=== PATIENT | male | born 1990 | race Caucasian/White ===

== ENCOUNTER 2021-04-01 10:47 | Inpatient (IN) | payer SELFPAY ==
[2021-04-01] VITALS (52 sets, daily range): BP systolic 147–234; BP diastolic 83–171; PULSE 63–91; RESP 12–30; TEMP 36.1–37.1; O2SAT 93–99; BMI 82.1
--- NOTE | ~2021-04-01 | US_ITS ---
EXAMINATION: US retroperitoneal duplex ltd DATE: 04/02/2021 10:46 INDICATION: Hypertensive emergency TECHNIQUE: Multiple grayscale, color Doppler, and pulsed Doppler images of the kidneys and renal nellie oral were obtained. COMPARISON: None. FINDINGS: The aorta peak systolic velocity is 115 cm/s. The right renal artery peak systolic velocity is 138 cm /s in the proximal segment, 122 cm/s in the mid segment, and 108 cm/s in the distal segment. The left renal artery peak systolic velocity is 117 cm/s in the proximal segment, 119 cm/s in the mid segment , and 130 cm/s in the distal segment. No hydronephrosis in either kidney. IMPRESSION: 1. No Doppler evidence of renal artery stenosis. Reviewed, dictated and finalized at location A. R SUPERVISOR
--- NOTE | ~2021-04-01 | CT_ITS ---
EXAMINATION: CTA chest PE protocol EXAM DATE: 04/01/2021 15:23 INDICATION: Shortness of breath, elevated D-dimer TECHNIQUE: Spiral CTA of the chest (pulmonary arteries) was performed with 100 cc Omnipaque 350 intr avenous contrast injection. Images were acquired during the pulmonary arterial phase. Coronal maxi mum intensity projection 3D-reconstructions were created by the technologist on dedicated workstation . Axial, coronal and sagittal reformatted images were reviewed. The dose-length product (DLP) for t his examination was 1808.74 mGy-cm. The exposure was tailored according to patient size (auto mA ex posure control), and iterative reconstruction (ASIR) was used as additional dose reduction technique. There is no prior study for comparison. FINDINGS: Pulmonary arteries are well opacified and without intraluminal filling defects. No thora cic aortic dissection. There is cardiomegaly. Moderate amount of bilateral airspace disease, focal sc attered groundglass opacities suspicious for acute COVID pneumonia. There is also generalized groundg lass density which could be superimposed edema. There are small bilateral pleural effusions. Small pe ricardial effusion. Mild reactive mediastinal lymphadenopathy. No pneumothorax. IMPRESSION: Findings consistent with CHF exacerbation and possibly acute COVID pneumonia. Reviewed, dictated and finalized at location B. EXAMINER
--- NOTE | ~2021-04-01 | XR_ITS ---
EXAMINATION: XR chest 2V EXAM DATE: 04/01/2021 11:52 INDICATION: chest pain, SOB HTN . TECHNIQUE: Frontal and lateral projections of the chest obtained and reviewed. There is no prior mayito dy for comparison. FINDINGS: There is mild cardiomegaly. There is prominent bilateral perihilar reticulation which coul d be edema or atypical pneumonia. No pneumothorax. Trace fluid in the right minor and major fissures. No confluent consolidation. There are no osseous abnormalities identified. IMPRESSION: Mild cardiomegaly and bilateral perihilar indistinct reticulation, edema or atypical pneu monia. Reviewed, dictated and finalized at location B. WEEDER IMPRESSION: Mild cardiomegaly and bilateral perihilar indistinct reticulation, edema or atypical pneumonia.
--- NOTE | 2021-04-01 11:00 | ECG_ITS ---
Measurements Intervals [place] Rate: 88 P: 29 SC: 157 QRS: 57 QRSD: 105 T: 169 QT: 378 QTc: 458 Interpretive Statements SINUS RHYTHM POSSIBLE LEFT ATRIAL ENLARGEMENT LEFT VENTRICULAR HYPERTROPHY AND ST-T CHANGE BORDERLINE ECG Electronically Signed On 04-01-2021 11:44:05 SUCTION PLATE ROLLER HAND by Zeb Washington D.O.
[2021-04-01 11:15] LABS: Basophils Absolute Auto 0.1 K/mm3 (0.0-0.1); Basophils Percent Auto 1.2 % (0.2-1.2); Eosinophils Absolute Auto 0.2 K/mm3 (0-0.3); Eosinophils Percent Auto 2.1 % (0-4.4); Immature Granulocyte Absolute 0.03 K/mm3 (0.00-0.031); Immature Granulocyte Percent A 0.4 % (0-0.5); Lymphocytes Absolute Auto 1.71 K/mm3 (0.9-3.2); Mean Corpuscular HGB Conc 34.1 g/dl (32-36); Mean Corpuscular Hemoglobin 27.5 pg (26-34); Mean Corpuscular Volume 80.6 fl (80-100); Mean Platelet Volume 12.1 fl (7.4-10.4); Monocytes Absolute Auto 0.7 K/mm3 (0.1-0.6); Monocytes Percent Auto 8.1 % (2.6-8.5); Neutrophils Absolute Auto 5.8 K/mm3 (1.3-6.7); Neutrophils Percent Auto 68.2 % (45.5-73.1); Platelet Count Result 244 k/mm3 (150-375); Red Blood Count 5.46 M/mm3 (4.6-6.20); Red Cell Distribution Width 13.7 % (11.5-14.5); White Blood Count 8.6 K/mm3 (4.5-10.0)
[2021-04-01 11:25] LABS: Prothrombin Time 12.8 Seconds (11.1-14.7)
[2021-04-01 11:26] LABS: Partial Thromboplastin Time 26.1 SECONDS (22.3-36.8)
[2021-04-01 11:28] LABS: Alanine Aminotransferase 30 U/L (4-50); Albumin Level 4.8 g/dL (3.5-5.1); Alkaline Phosphatase 43 U/L (38-126); Anion Gap 10 mmol/L (8-16); Aspartate Amino Transferase 50 U/L (17-59); Bilirubin,Total 1.4 mg/dL (0.2-1.3); Blood Urea Nitrogen 21 mg/dL (9-20); Calcium 9.4 mg/dL (8.4-10.2); Carbon Dioxide 22 mmol/L (22-30); Chloride 105 mmol/L (98-107); Estimated CRCL calculation 109 ml/min; Estimated Glomerular Filt Rate > 60; Glucose 108 mg/dL (65-110); Lipase 40 U/L (23-300); Potassium 3.9 mmol/L (3.4-5.0); Sodium 137 mmol/L (137-145)
[2021-04-01 11:38] LABS: Troponin I 0.127 ng/mL (0.000-0.034)
--- NOTE | 2021-04-01 11:54 | ED.CHESTPAIN ---
HPI - Chest Pain General Chief Complaint: Recheck/Abnormal Lab/Rx Stated Complaint: high blood pressure Time Seen by Provider: 04/01/21 11:26 Source: patient Mode of arrival: ambulatory Limitations: no limitations History of Present Illness HPI narrative: Patient is a 30-year-old male sent here by his primary care physician, first visit with him, due to elevated blood pressure accompanied by chest discomfort. Patient states that his chest pain started approximately 2 weeks ago intermittent, midsternal, pressure, nonradiating, accompanied by shortness of breath. Patient states that he was diagnosed with elevated blood pressure when he was in his early 20s, was on medication but lost insurance years ago and has not had any follow-up or medication since. Patient denies any headache, dizziness, speech or visual disturbance, focal weakness or numbness, abdominal pain, nausea, vomiting, fever or chills. Related Data Home Medications Medication Instructions Recorded Confirmed No Home Medications 04/01/21 04/01/21 Allergies Allergy/AdvReac Type Severity Reaction Status Date / Time No Known Allergies Allergy Verified 04/01/21 11:28 Review of Systems Review of Systems: All systems reviewed & are unremarkable except as noted in HPI and below Constitutional: Constitutional: Denies body ache(s), Denies chills, Denies excessive sweating, Denies fatigue, Denies fever(s), Denies headache(s), Denies lethargy, Denies malaise, Denies weakness and Denies weight loss Eyes: Eyes: Denies blurry vision, Denies change in vision and Denies loss of vision ENT: Denies dizziness, Denies ear discharge, Denies headache(s), Denies lip swelling, Denies epistaxis, Denies nasal congestion, Denies neck pain, Denies throat swelling and Denies tongue swelling Cardiovascular: Cardiovascular: Denies diaphoresis, Denies rapid heart rate, Denies edema, Denies irregular heart rhythm, Denies lightheadedness and Denies palpitations Respiratory: Respiratory: Denies chest congestion, Denies cough and Denies hemoptysis Gastrointestinal: Gastrointestinal: Denies abdominal pain, Denies melena, Denies hematochezia, Denies diarrhea, Denies nausea, Denies vomiting and Denies hematemesis Musculoskeletal: Musculoskeletal: Denies abnormal gait, Denies deformity, Denies joint swelling, Denies limited range of motion, Denies neck pain and Denies numbness Neurologic: Denies Abnormal speech present, Denies abnormal gait, Denies confusion, Denies dizziness, Denies headache(s), Denies focal weakness, Denies loss of vision, Denies numbness, Denies Other visual disturbances, Denies Sensory deficit (Neuro) and Denies weakness Psychiatric: Psychiatric: Denies confusion, Denies depression, Denies auditory hallucinations, Denies homicidal ideation and Denies suicidal ideation Endocrine: Endocrine: Denies cold intolerance, Denies excessive sweating, Denies fatigue, Denies heat intolerance and Denies palpitations Hematologic/Lymphatic: Hematologic/Lymphatic: Denies easy bleeding and Denies easy bruising Allergic/Immunologic: Allergic/Immunologic: Denies lip swelling, Denies throat swelling and Denies tongue swelling PMFSH Comments Past medical history: Hypertension Family history: Hypertension Social history: Non-smoker no EtOH or drug use Exam Const: General: cooperative, healthy appearing, comfortable, no acute distress, well developed, alert and awake; No confusion Orientation/consciousness: oriented to person, oriented to place, oriented to time, patient oriented x3 and No confusion Limitations: no limitations HENMT: Head: normal to inspection, normocephalic and atraumatic Ears: hearing grossly normal bilaterally, TM normal on the right and TM normal on the left General nose exam: Normal external nose present, Normal nares present and No nasal discharge present Face and sinus: normal facial exam Mouth: Yes Normal oral and palatal mucosa present, Yes lip normal, Yes tongue normal
[2021-04-01 12:19] LABS: D Dimer 3.78 ug/mL (<0.48)
[2021-04-01] MEDS: ASPIRIN 81 MG CHEWABLE TABLET 324 MG PO (12:23)
[2021-04-01] MEDS: LABETALOL HCL INJ 100 MG/20 ML VIAL 20 MG IV PUSH ×2 (12:38→15:43)
[2021-04-01 14:43] LABS: Troponin I 0.115 ng/mL (0.000-0.034)
[2021-04-01] MEDS: NITROGLYCERIN/D5W 200 MCG/ML 50 MG/250 ML BTL IV CONT ×2 (16:33→18:00)
--- NOTE | 2021-04-01 17:00 | PM.IMHP ---
H&P: HPI History of Present Illness Date/Time: 04/01/21 17:00 Chief Complaint: High blood pressure and chest pain. Narrative: This is a pleasant 30-year-old male with untreated hypertension who presented to the emergency department today from his doctor's office for evaluation of high blood pressure and chest pain. He reports intermittent, self-limiting, non-radiating midsternal chest pressure that has been going on for approximately 2 weeks accompanied by shortness of breath and occasional diaphoresis. He sees no pattern as to when the pain occurs and states that is not exclusively with exertion; he gives no significant aggravating or alleviating factors. He also endorses orthopnea and paroxysmal nocturnal dyspnea. Today he had an appointment with a new primary care provider at which time he was found to be extremely hypertensive and he was referred to the emergency department. His blood pressure has been as high as 234/156 and he indicates to me that this is a typical reading for him as he does monitor his blood pressures at home. He has previously taken losartan and amlodipine though he has not taken them since last summer when he was fired by his doctor due to noncompliance. The patients states his noncompliance was due to financial constraints and lack of insurance. He tolerated those medications just fine and he saw a difference when taking them though his blood pressure rarely got below 180/120. EKG done on arrival to the emergency department is consistent with left ventricular hypertrophy and his troponins have been modestly elevated. Despite receiving several doses of IV labetalol, his blood pressures have remained over 200 and he is now being admitted to the ICU on a nitroglycerin drip. At the time my evaluation he is eating a lunch box and his only complaint is that of a mild headache. He denies vertigo, visual changes, focal weakness, paresthesias, nausea, vomiting, sweats, and edema. He has never been screened for sleep apnea but states he snores loudly and she has witnessed apneic episodes. He has not taken any [id number] medications or supplements. He denies illicit substance use aside from occasional marijuana. He has never used hard drugs. Review of Systems Review of Systems: Twelve systems were reviewed. Weight has been stable. No sinus congestion, rhinorrhea, otalgia, or odynophagia. He has had a mild cough and in fact reports coughing up a small amount of blood the last several days. No pleuritic pain or calf tenderness. No history of venous thromboembolism. No hematuria. Except as documented, all other systems were reviewed and are negative. [facility] Past Medical History Medical History Hypertension Surgical History Surgical History (Updated 04/02/21 @ 00:44 by Jennifer Guzmán PA-C) History of open reduction and internal fixation (ORIF) procedure Repair of left elbow fracture as a child. Family History Family History (Updated 04/02/21 @ 00:46 by Jennifer Guzmán PA-C) Mother Methamphetamine abuse Father Methamphetamine abuse Heart disease Sibling Methamphetamine abuse Grandparent Hypertension Social History Social History (Updated 04/02/21 @ 01:00 by Jennifer Guzmán PA-C) Social History: Surrogate decision maker: Suzie Li, spouse. Code status: Full code. Smoking status: Never smoker Alcohol intake: current Drinks per week: 1 Substance use: current Substance use type: marijuana Additional living arrangements comments: The patient lives with his in 4 children in [place]. Additional occupation/education comments: Not currently employed. Meds Home Medications and Allergies Home Medications Medication Instructions Recorded Confirmed Type No Home Medications 04/01/21 04/01/21 History Allergies Allergy/AdvReac Type Severity Reaction Status Date / Time No Known Allergies Allergy Ve
[2021-04-01 18:00] LABS: Troponin I 0.121 ng/mL (0.000-0.034)
--- NOTE | 2021-04-01 18:50 | ADMGEN ---
This patient, Darrius Li, was admitted to Intensive Care Unit-7. Patient/family oriented to hospital policies and general routines including ID bracelet, bed and alarms, visiting hours, pain management, procedures, bathroom and other care routines, personal items, smoking policy, room service/diet, and visiting hours. Information on how to activate the Rapid Response Team has been discussed. Patient/Family are encouraged to report perceived risks to care and to ask questions if they do not understand what they are told or what they should do.
--- NOTE | 2021-04-01 20:02 | ECG_ITS ---
Measurements Intervals [place] Rate: 84 P: 58 WI: 167 QRS: 56 QRSD: 105 T: 185 QT: 401 QTc: 475 Interpretive Statements SINUS RHYTHM POSSIBLE LEFT ATRIAL ENLARGEMENT LEFT VENTRICULAR HYPERTROPHY AND ST-T CHANGE BORDERLINE ST-T WAVE ABNORMALITY- INF/HIGH LAT LEADS BASELINE ARTIFACT- II, III, AVL, V4 BORDERLINE ECG Electronically Signed On 04-02-2021 7:59:01 WILD ANIMAL CARETAKER by Zeb Washington D.O.
[2021-04-01] MEDS: ACETAMINOPHEN 325 MG TABLET 650 MG PO (20:38)
[2021-04-01 22:19] LABS: Glucose Point of Care 116 mg/dl (65-105)
[2021-04-01] MEDS: ONDANSETRON INJ 4 MG/2 ML VIAL IV PUSH (22:41)
[2021-04-01] MEDS: ENALAPRILAT 1.25 MG/ML VIAL 2.5 MG IV PUSH (22:41)
[2021-04-01] MEDS: SODIUM NITROPRUSSIDE IV SOLN 50 MG in DEXTROSE 5% IN WATER 250 ML 24.73 MG IV CONT (22:48)
[2021-04-02] VITALS (14 sets, daily range): BP systolic 132–202; BP diastolic 77–128; PULSE 66–100; RESP 12–26; TEMP 36.5–37.1; O2SAT 92–98
--- NOTE | 2021-04-02 00:58 | ECHO_ITS ---
Patient Info Name: Darrius Li Age: 30 years : 1990 Gender: Male Ht: 66 in Wt: 251 lbs BSA: 2.36 m2 HR: 76 bpm BP: 151 / 77 mmHg Exam Date: 04/02/2021 8:41 AM Exam Location: [facility] Patient Status: Inpatient Admit Date: 04/01/2021 Staff Ordering Physician: Jennifer Guzmán PA-C Equipment Records Supervisor: Jaya Heck, DUANE, RT Attending Provider: Ted Gonsales MD Referring Physician: Arielle PERERA; Exam Type: CA echo dop color flow w con Study Info Indications G45.8 - Other transient cerebral ischemic attacks and related syndromes Complete two-dimensional, color flow and Doppler transthoracic echocardiogram is performed with contrast to opacify the left ventricle and to improve the deliniation of the left ventricle endocardial borders. Strain analysis performed. Summary 1. Left ventricular systolic function is mildly reduced, estimated at 45-50%. 2. Left ventricular chamber dimension is mildly enlarged. 3. There is severely increased left ventricular wall thickness. 4. The left ventricular diastolic function is abnormal. 5. Left atrial chamber dimension is moderately enlarged. 6. There is trace aortic valve regurgitation. 7. There is mild aortic valve sclerosis. 8. There is moderate to severe mitral valve regurgitation. 9. There is mild mitral valve calcification. Left Ventricle Left ventricular chamber dimension is mildly enlarged. Left ventricular systolic function is mildly reduced, estimated at 45-50%. There is severely increased left ventricular wall thickness. The left ventricular diastolic function is abnormal. Global longitudinal strain is abnormal at -8 %. Right Ventricle Right ventricular chamber dimension is normal. Right ventricular systolic function is normal. Left Atria Left atrial chamber dimension is moderately enlarged. Right Atria Right atrial chamber dimension is normal. Atrial Septum Intact interatrial septum visualized by color flow imaging. Aortic Valve The aortic valve is trileaflet. There is mild aortic valve sclerosis. There is no aortic valve stenosis. There is trace aortic valve regurgitation. Pulmonic Valve The pulmonic valve is not well visualized. There is no pulmonic valve stenosis. There is no pulmonic regurgitation. Mitral Valve There is no mitral valve stenosis. There is moderate to severe mitral valve regurgitation. There is mild mitral valve calcification. Tricuspid Valve The tricuspid valve leaflets are normal. There is no significant tricuspid valve stenosis. There is no tricuspid valve regurgitation. Pericardium/Pleural The pericardium appears normal. Inferior Vena Cava Normal inferior vena cava with <50% collapse upon inspiration consistent with Empty right atrial pressure, 10 mmHg. Aorta The aortic root size at the sinus of Valsalva is normal. Left Ventricular Outflow Tract Name Value Normal LVOT 2D LVOT Diameter 2.25 cm LVOT Doppler LVOT Peak Gradient 3 mmHg LVOT Mean Gradient 2 mmHg LVOT VTI 16.04 cm LVOT
[2021-04-02 05:28] LABS: Hematocrit 39.6 % (42.0-52.0); Hemoglobin 13.2 g/dL (14.0-18.0); Mean Corpuscular HGB Conc 33.3 g/dl (32-36); Mean Corpuscular Hemoglobin 27.8 pg (26-34); Mean Corpuscular Volume 83.5 fl (80-100); Mean Platelet Volume 12.6 fl (7.4-10.4); Platelet Count Result 206 k/mm3 (150-375); Red Blood Count 4.74 M/mm3 (4.6-6.20); White Blood Count 8.7 K/mm3 (4.5-10.0)
[2021-04-02 05:33] LABS: Alanine Aminotransferase 24 U/L (4-50); Albumin Level 3.8 g/dL (3.5-5.1); Alkaline Phosphatase 42 U/L (38-126); Anion Gap 9 mmol/L (8-16); Aspartate Amino Transferase 25 U/L (17-59); Bilirubin,Total 0.7 mg/dL (0.2-1.3); Blood Urea Nitrogen 19 mg/dL (9-20); Calcium 9.2 mg/dL (8.4-10.2); Carbon Dioxide 24 mmol/L (22-30); Chloride 106 mmol/L (98-107); Cholesterol 140 mg/dL (0-200); Estimated CRCL calculation 108 ml/min; Estimated Glomerular Filt Rate > 60; Glucose 103 mg/dL (65-110); HDL Direct 27 mg/dL; Magnesium 2.1 mg/dL (1.6-2.3); Potassium 3.4 mmol/L (3.4-5.0); Sodium 139 mmol/L (137-145); Triglycerides 116 mg/dL (<150)
[2021-04-02 05:39] LABS: Amphetamine Screen Urine Negative (Negative); Barbiturate Screen Urine Negative (Negative); Benzodiazepines Screen Urine Negative (Negative); Cannabinoid Screen Urine Positive (Negative); Cocaine Screen Urine Negative (Negative); Methadone Screen Urine Negative (Negative); Opiate Screen Urine Negative (Negative); Phencyclidine Screen Urine Negative (Negative)
[2021-04-02 05:44] LABS: LDL Cholesterol Direct 86 mg/dL
[2021-04-02 09:20] LABS: Prothrombin Time 13.5 Seconds (11.1-14.7)
[2021-04-02 09:25] LABS: Alanine Aminotransferase 26 U/L (4-50); Estimated CRCL calculation 108 ml/min; Estimated Glomerular Filt Rate > 60
[2021-04-02] MEDS: lisinopriL 5 MG TABLET PO (09:41)
[2021-04-02] MEDS: amLODIPine BESYLATE 5 MG TABLET 10 MG PO (09:41)
[2021-04-02] MEDS: ENOXAPARIN 40 MG/0.4 ML SYRINGE SUB-Q (09:42)
[2021-04-02] MEDS: ACETAMINOPHEN 325 MG TABLET 650 MG PO (10:50)
[2021-04-02] MEDS: hydrALAZINE HCL 20 MG/ML VIAL IV PUSH (11:58)
--- NOTE | 2021-04-02 12:50 | PM.CNCAR ---
Assessment and Plan Assessment and plan (1) Hypertensive emergency: Code(s): I16.1 - Hypertensive emergency Status: Acute Assessment and Plan: His blood pressure is markedly and severely elevated. Amazingly he has not sustained a neurological event to this point. His ejection fraction is diminished and his elevated troponins are likely secondary to hypertensive crisis. Will need to lower his blood pressure gradually over time. Obviously to aggressive blood pressure lowering will result in potential CVA or neurological event. Will Be content with a blood pressure around 180/100 for now with gradual lowering thereafter. Will increase his lisinopril up to 10 mg p.o. b.i.d.. Will add some carvedilol at 6.25 mg p.o. b.i.d.. Amlodipine will continue to be used for now but if blood pressure is controlled with lisinopril carvedilol and other regimen, would discontinue the amlodipine. Due to the severity of his hypertension, I will check Renin and aldosterone levels. Bilateral renal artery ultrasound also to evaluate for renal artery stenosis should be performed. (2) Elevated troponin: Code(s): R77.8 - Other specified abnormalities of plasma proteins Status: Acute Assessment and Plan: Secondary to hypertensive crisis. Unlikely from acute plaque rupture (3) Suspected sleep apnea: Code(s): R29.818 - Other symptoms and signs involving the nervous system Status: Acute Assessment and Plan: Will order an ApneaLink (4) Severe obesity (BMI 35.0-39.9) with comorbidity: Code(s): E66.01 - Morbid (severe) obesity due to excess calories Status: Acute (5) Cardiomyopathy: Code(s): I42.9 - Cardiomyopathy, unspecified Status: Acute Assessment and Plan: At Least mild reduction of ejection fraction with severe LVH. This is likely secondary to longstanding marked hypertension. Will need to follow with serial echocardiograms over time. History of Present Illness History of Present Illness Consult date/time: 04/02/21 12:50 Requesting physician: David Peralta MD Consult reason: chest pain, hypertension and Other Reason For Visit: Hypertensive Emergency, NSTEMI Narrative: Date of service 04/02/2021 Reason for consultation: Hypertensive crisis, and positive troponins Requesting providers: and Dr. albarran History: Patient is a 30-year-old male who has a history of hypertension. He was formally on amlodipine and losartan. He was fired from a previous primary care provider because of noncompliance with testing. Gradually over a 6 month period time he quit taking or could not get his medications refilled. He has high blood pressure at least for 5 years. He does check his blood pressure at home is blood pressure generally around 250 systolic. He saw a new primary care provider Dr. Jasmine yesterday and because of chest pain at that visit was told to go to the ER for further evaluation treatment. His blood pressure was as high as 256 systolic. He also was noted to have elevated troponin. He has had some chest tightness periodically as of late as well as occasional headaches. Does have dyspnea with exertion. His chest tightness will occur 1 time per month and last for couple hours. It is nonexertional. He also noticed some hemoptysis over the past couple of days. Because of the symptoms he became worried which is why he scheduled his appointment with his new PCP. There has been no syncope, presyncope, orthopnea, edema or palpitations. He does have paroxysmal nocturnal dyspnea, snoring and witnessed apnea. He did not tolerate nitroglycerin overnight. He was on nicardipine drip which has also been turned off. Blood pressure is still quite elevated but intention is to gradually lower over time to avoid neurological event Review of Systems Review of Systems: All systems reviewed & are unremarkable except as noted in HPI and below Constitutional: Constitutiona
--- NOTE | 2021-04-02 13:04 | WPDCNINT ---
Assessment and Plan Assessment and plan (1) Hypertensive urgency: Code(s): I16.0 - Hypertensive urgency Status: Acute Assessment and Plan: Patient with hypertensive urgency, systolics in the 250s -appreciate cardiology evaluation and recommendations, cardiology will add lisinopril and Coreg, will continue amlodipine for now -check renin aldosterone levels, -04/02/2021: bilateral renal artery Dopplers: No Doppler evidence of renal artery stenosis (2) Elevated troponin: Code(s): R77.8 - Other specified abnormalities of plasma proteins Status: Acute Assessment and Plan: Elevated troponin, likely related to hypertensive urgency, -the patient (3) Cardiomyopathy: Code(s): I42.9 - Cardiomyopathy, unspecified Status: Acute Assessment and Plan: 04/02/2021 echocardiogram showed mildly reduced LV systolic function with EF of 45-50%, severely increased left ventricular wall thickness, LV diastolic function is abnormal, moderate to severe mitral valve regurg -once blood pressures are stable will repeat echocardiogram Additional Plan Discussed with patient updated with his condition and plan of care. I answered all questions Code status: Full code Critical care time spent: 44 minutes This dictation may have been done utilizing a voice recognition system. Attempts have been made to correct errors. However, there may be uncorrected grammatical, spelling, and recognition errors present. Due to a high probability of clinically significant, life threatening deterioration, the patient required my highest level of preparedness to intervene emergently and I personally spent this critical care time directly and personally managing the patient. This critical care time included obtaining a history; examining the patient; pulse oximetry; ordering and review of studies; arranging urgent treatment with development of a management plan; evaluation of patient's response to treatment; frequent reassessment; and discussions with other providers. It was exclusive of separately billable procedures and treating other patients and teaching time. Please see Assessment and Plan section and the rest of the note for further information on patient assessment and treatment Ostrich Farmer Consult Note Consult date: 04/02/21 Time Seen: 07:02 Reason for consult: Hypertensive urgency, positive troponins HPI: Darrius Li is a 30 year old male with past medical history of hypertension for 5 years, patient was noncompliant with his medication and testing. He quit taking his high blood pressure medications around 6 months back. Patient checks his blood pressure at home and his blood pressures generally is around 250 systolic. He did see a new primary care provider and was sent to the ED for further evaluation and management. In the ER patient's systolic blood pressures were as high as 256. Patient was also noted to have elevated troponin level. He had intermittent chest tightness with occasional headaches. He does have dyspnea with exertion. Patient was started on nitroglycerin infusion but he felt diaphoretic with increased headaches. Which was discontinued patient was given a dose of Vasotec IV. Patient did not have to go back on nitroprusside infusion. Systolic blood pressure being targeted between 180-200 mmHg. Patient seen examined this morning, pleasant personality, denies any chest pain at this time, shortness of breath. Denies any nausea, vomiting, abdominal pain. Patient does not smoke, drinks alcohol occasionally, with occasional marijuana use. Patient states that he is unemployed and is [id number] father. Review of Systems Review of Systems: All systems reviewed & are unremarkable except as noted in HPI and below PMFSH Past Medical History Medical History Hypertension Surgical History Surgical History (Reviewed 04/02/21 @ 12:52 by Carlos Mcclendon,
--- NOTE | 2021-04-02 18:11 | PC.NURSE ---
This patient, Darrius Li, was transferred to [facility] on 04/02/21 at 1755. Personal belongings sent with patient. Report given to Stacy SANDHU. Appropriate documentation sent with patient.
--- NOTE | 2021-04-02 18:18 | PC.NURSE ---
1810-pt to room 1 from ICU. VSS, pt complains of frontal headache, rating it a 1
[2021-04-02] MEDS: lisinopriL 10 MG TABLET PO (19:02)
[2021-04-02] MEDS: carvediloL 6.25 MG TABLET PO (20:45)
[2021-04-03] VITALS (8 sets, daily range): BP systolic 153–187; BP diastolic 95–120; PULSE 72–88; RESP 16–20; TEMP 36.6–36.8; O2SAT 92–100
[2021-04-03] MEDS: amLODIPine BESYLATE 5 MG TABLET 10 MG PO (09:10)
[2021-04-03] MEDS: carvediloL 6.25 MG TABLET PO ×2 (09:10→20:18)
[2021-04-03] MEDS: lisinopriL 10 MG TABLET PO ×2 (09:10→16:21)
[2021-04-03] MEDS: ENOXAPARIN 40 MG/0.4 ML SYRINGE SUB-Q (09:10)
--- NOTE | 2021-04-03 10:03 | PM.PNCARD ---
Progress Note: A&P Assessment and Plan (1) Hypertensive emergency: Code(s): I16.1 - Hypertensive emergency Status: Acute Assessment and Plan: His blood pressure is markedly and severely elevated. Amazingly he has not sustained a neurological event to this point. His ejection fraction is diminished and his elevated troponins are likely secondary to hypertensive crisis. Will need to lower his blood pressure gradually over time. Obviously to aggressive blood pressure lowering will result in potential CVA or neurological event. Will not make any changes to his BP regimen today. Renin/aldosterone levels ordered. Renal artery ultrasound negative for stenosis. He does have sleep apnea based on apnea link. BMP/magnesium now (2) Elevated troponin: Code(s): R77.8 - Other specified abnormalities of plasma proteins Status: Acute Assessment and Plan: Secondary to hypertensive crisis. Unlikely from acute plaque rupture (3) Suspected sleep apnea: Code(s): R29.818 - Other symptoms and signs involving the nervous system Status: Acute Assessment and Plan: Abnormal ApneaLink. Eventual sleep study as an outpatient (4) Severe obesity (BMI 35.0-39.9) with comorbidity: Code(s): E66.01 - Morbid (severe) obesity due to excess calories Status: Acute (5) Cardiomyopathy: Code(s): I42.9 - Cardiomyopathy, unspecified Status: Acute Assessment and Plan: At Least mild reduction of ejection fraction with severe LVH. This is likely secondary to longstanding marked hypertension. Will need to follow with serial echocardiograms over time. Subjective Date/time seen: 04/03/21 10:03 Interval history: 30-year-old admitted with hypertensive crisis Date of service 04/03/2021: He is feeling better. No chest pain, shortness of breath. Blood pressure obviously still markedly elevated but significantly improved from admission. Review of Systems Review of Systems: All systems reviewed & are unremarkable except as noted in HPI and below Constitutional: Constitutional: Denies excessive sweating, Reports headache(s) and Denies weakness Eyes: Eyes: Denies blurry vision ENT: Denies Normal hearing present, Reports headache(s) and Denies neck pain Cardiovascular: Cardiovascular: Reports chest pain and Reports dyspnea on exertion Respiratory: Respiratory: Reports hemoptysis and Reports dyspnea on exertion Gastrointestinal: Gastrointestinal: Denies abdominal pain Genitourinary: Genitourinary: Denies dysuria Musculoskeletal: Musculoskeletal: Denies neck pain Integumentary/Breasts: Skin/Breast: Denies dry skin Neurologic: Denies Normal hearing present, Reports headache(s) and Denies weakness Psychiatric: Psychiatric: Denies anxiety Endocrine: Endocrine: Denies excessive sweating Hematologic/Lymphatic: Hematologic/Lymphatic: Denies easy bleeding Allergic/Immunologic: Allergic/Immunologic: Denies GI upset with certain foods Exam Narrative: Alert and oriented and appears stated age. Const: General: comfortable and no acute distress HENMT: General nose exam: Normal nares present Eyes: Sclera: sclerae normal Neck: Neck: supple and no JVD Carotids: no bruits Chest: Other: No reproducible chest wall pain to palpation Resp: Auscultation: clear to auscultation bilaterally Cardio: Rate: regular rate Rhythm: regular rhythm GI: Inspection: non-distended Auscultation: normal bowel sounds Skin: General skin exam: normal color Neuro: Cranial nerves: No Normal hearing present Cognition (Neuro): normal cognition Speech: normal speech Extrem: General: normal to inspection and no edema Psych: Mental Status: mental status grossly normal Objective Data Vital Signs Vital Signs: Vital Signs - 24 hr 04/02/21 12:00 04/02/21 14:00 04/02/21 16:00 Temperature 36.5 C Pulse Rate 100 91 100 Respiratory Rate 24 H 18 24 H Blood Pressure 202/128 H 183/95 H
[2021-04-03 10:44] LABS: Anion Gap 12 mmol/L (8-16); Blood Urea Nitrogen 21 mg/dL (9-20); Carbon Dioxide 24 mmol/L (22-30); Chloride 101 mmol/L (98-107); Estimated CRCL calculation 109 ml/min; Estimated Glomerular Filt Rate > 60; Glucose 100 mg/dL (65-110); Magnesium 2.2 mg/dL (1.6-2.3); Potassium 3.6 mmol/L (3.4-5.0); Sodium 137 mmol/L (137-145)
--- NOTE | 2021-04-03 15:14 | PM.IMPN ---
Progress Note: A&P Assessment and Plan (1) Hypertensive urgency: Code(s): I16.0 - Hypertensive urgency Status: Acute Assessment and Plan: Patient with hypertensive urgency, systolics in the 250s -appreciate cardiology evaluation and recommendations, cardiology added lisinopril and Coregand now amlodipine for now -check renin aldosterone levels, -04/02/2021: bilateral renal artery Dopplers: No Doppler evidence of renal artery stenosis ApneaLink test with AHI 8.3/RI 11.4 suggestive of sleep apnea needs sleep study as an outpatient basis. will check cortisol level and also metanephrines 24 hr urine free cortsiol and metanephrines renin aldosteerone pending tsh normal. (2) Elevated troponin: Code(s): R77.8 - Other specified abnormalities of plasma proteins Status: Acute Assessment and Plan: Elevated troponin, likely related to hypertensive urgency, flat trajectory (3) Cardiomyopathy: Code(s): I42.9 - Cardiomyopathy, unspecified Status: Acute Assessment and Plan: 04/02/2021 echocardiogram showed mildly reduced LV systolic function with EF of 45-50%, severely increased left ventricular wall thickness, LV diastolic function is abnormal, moderate to severe mitral valve regurg -once blood pressures are stable will repeat echocardiogram (4) Mitral regurgitation: Code(s): I34.0 - Nonrheumatic mitral (valve) insufficiency Status: Acute Assessment and Plan: moderate to sevre mitral valve regurg. repeat planned afer bp improved meddical managmenet for now (5) Abnormal CT of the chest: Code(s): R93.89 - Abnormal findings on diagnostic imaging of other specified body structures Status: Acute Assessment and Plan: due to covid vs pulm congestion. recent covid infection. cta neggativ efor PE not clinically volume overlaoded, does have mitral regurgitation which can lead to congestive changes. medical managemnt. Diuretic like hctz may help add bp control if needed Additional Plan DVT proph: lovenox Subjective Date/time seen: 04/03/21 15:14 Interval history: 30-year-old admitted with hypertensive crisis Date of service 04/03/2021: He is feeling better. No chest pain, shortness of breath. Blood pressure obviously still markedly elevated but significantly improved from admission. no headache, no leg swelling. Apnea link test reviewed. Review of Systems Review of Systems: All systems reviewed & are unremarkable except as noted in HPI and below Exam Narrative: General: Patient is in no acute distress HEENT: Sclera is clear, moist oral mucosa Neck: Supple, non tender Respiratory: Clear to auscultation bilateral, no reespiratory distress Cardiac: Regular rate and rhythm, S1-S2 normal Abdomen: Soft, nontender, nondistended, normoactive bowel sounds Extremities: No edema, palpable pedal pulses Neuro: Patient is awake, alert, oriented x3, nonfocal Skin: Warm and dry, no lesions noted Psych: Mental status is grossly normal, normal affect Objective Data Vital Signs Vital Signs: Vital Signs - 24 hr 04/02/21 16:00 04/02/21 20:00 04/02/21 20:45 Temperature Pulse Rate 100 88 88 Respiratory Rate 24 H 24 H Blood Pressure 155/98 H Pulse Oximetry 98 98 04/02/21 22:50 04/03/21 00:00 04/03/21 04:00 Temperature 97.9 F Pulse Rate 78 79 Respiratory Rate 18 20 Blood Pressure 170/95 H Pulse Oximetry 92 92 94 04/03/21 08:00 04/03/21 11:53 04/03/21 12:00 Temperature 98 F Pulse Rate 79 74 87 Respiratory Rate 16 20 Blood Pressure 187/105 H 168/120 H Pulse Oximetry 100 100 Intake/Output Intake/Output: Intake & Output 03/31/21 04/01/21 04/02/21 04/03/21 23:59 23:59 23:59 23:59 Intake Total 1410 930 Output Total 1705 700 Balance -295 230 Meds/Results Medications: Active Medications Generic Name Dose Route Start Last Admin Trade Name Freq PRN Reason Stop Dose Admin Acetaminophen 650
[2021-04-04] VITALS (7 sets, daily range): BP systolic 129–181; BP diastolic 94–127; PULSE 59–85; RESP 14–24; TEMP 36.1–36.8; O2SAT 95–100
[2021-04-04 06:44] LABS: Basophils Absolute Auto 0.1 K/mm3 (0.0-0.1); Basophils Percent Auto 1.5 % (0.2-1.2); Eosinophils Absolute Auto 0.1 K/mm3 (0-0.3); Eosinophils Percent Auto 1.2 % (0-4.4); Hemoglobin 13.8 g/dL (14.0-18.0); Immature Granulocyte Absolute 0.02 K/mm3 (0.00-0.031); Immature Granulocyte Percent A 0.3 % (0-0.5); Lymphocytes Absolute Auto 2.67 K/mm3 (0.9-3.2); Lymphocytes Percent Auto 39.6 % (18.3-44.2); Mean Corpuscular HGB Conc 33.7 g/dl (32-36); Mean Corpuscular Hemoglobin 28.5 pg (26-34); Mean Corpuscular Volume 84.5 fl (80-100); Mean Platelet Volume 12.1 fl (7.4-10.4); Monocytes Absolute Auto 0.5 K/mm3 (0.1-0.6); Monocytes Percent Auto 7.6 % (2.6-8.5); Neutrophils Absolute Auto 3.4 K/mm3 (1.3-6.7); Neutrophils Percent Auto 49.8 % (45.5-73.1); Platelet Count Result 225 k/mm3 (150-375); Red Blood Count 4.85 M/mm3 (4.6-6.20); Red Cell Distribution Width 13.9 % (11.5-14.5); White Blood Count 6.8 K/mm3 (4.5-10.0)
[2021-04-04 06:56] LABS: Alanine Aminotransferase 29 U/L (4-50); Albumin Level 3.6 g/dL (3.5-5.1); Alkaline Phosphatase 42 U/L (38-126); Anion Gap 4 mmol/L (8-16); Aspartate Amino Transferase 26 U/L (17-59); Bilirubin,Total 0.3 mg/dL (0.2-1.3); Blood Urea Nitrogen 22 mg/dL (9-20); Calcium 9.3 mg/dL (8.4-10.2); Carbon Dioxide 25 mmol/L (22-30); Chloride 108 mmol/L (98-107); Estimated CRCL calculation 100 ml/min; Estimated Glomerular Filt Rate > 60; Glucose 97 mg/dL (65-110); Magnesium 2.1 mg/dL (1.6-2.3); Potassium 3.9 mmol/L (3.4-5.0); Sodium 137 mmol/L (137-145)
[2021-04-04 07:19] LABS: Cortisol Baseline 0.64 ug/dL
[2021-04-04] MEDS: carvediloL 6.25 MG TABLET PO ×2 (09:25→20:27)
[2021-04-04] MEDS: amLODIPine BESYLATE 5 MG TABLET 10 MG PO (09:26)
[2021-04-04] MEDS: lisinopriL 10 MG TABLET PO ×2 (09:26→18:01)
[2021-04-04] MEDS: ENOXAPARIN 40 MG/0.4 ML SYRINGE SUB-Q (09:27)
--- NOTE | 2021-04-04 12:07 | PM.IMPN ---
Progress Note: A&P Assessment and Plan (1) Hypertensive urgency: Code(s): I16.0 - Hypertensive urgency Status: Acute Assessment and Plan: Patient with hypertensive urgency, systolics in the 250s -appreciate cardiology evaluation and recommendations, cardiology added lisinopril and Coregand now amlodipine for now -check renin aldosterone levels, -04/02/2021: bilateral renal artery Dopplers: No Doppler evidence of renal artery stenosis ApneaLink test with AHI 8.3/RI 11.4 suggestive of sleep apnea needs sleep study as an outpatient basis. will check cortisol level and also metanephrines 24 hr urine free cortsiol and metanephrines renin aldosteerone pending tsh normal. 04/04/2021 Interval history: Patient with history of HTN had not taken his medications for over a 6 months. Presented to ER with emergently elevated BP of 203/167 patient, in ER patient was given labetalol without significant improvement, was started on nitroglycerine dripp and transferred to ICU, now off drip and currrently on Coreg, lisinopril, and amlopdine, his BP is trending down, he has no c/o CP, dizziness or GARCIA, recent cardiac ECHO showed EF of 45-50% and abnormal diastolic dysfunction, 04/02/2021: bilateral renal artery Dopplers: No Doppler evidence of renal artery stenosis, patient with elevated tropes most likely secondary to stress ischemia due to emergently elevated blood pressure, patient is seen by oil agent and further recommendation to follow. (2) Elevated troponin: Code(s): R77.8 - Other specified abnormalities of plasma proteins Status: Acute Assessment and Plan: Elevated troponin, likely related to hypertensive urgency, flat trajectory (3) Cardiomyopathy: Code(s): I42.9 - Cardiomyopathy, unspecified Status: Acute Assessment and Plan: 04/02/2021 echocardiogram showed mildly reduced LV systolic function with EF of 45-50%, severely increased left ventricular wall thickness, LV diastolic function is abnormal, moderate to severe mitral valve regurg -once blood pressures are stable will repeat echocardiogram (4) Mitral regurgitation: Code(s): I34.0 - Nonrheumatic mitral (valve) insufficiency Status: Acute Assessment and Plan: moderate to sevre mitral valve regurg. repeat planned afer bp improved meddical managmenet for now (5) Abnormal CT of the chest: Code(s): R93.89 - Abnormal findings on diagnostic imaging of other specified body structures Status: Acute Assessment and Plan: due to covid vs pulm congestion. recent covid infection. cta neggativ efor PE not clinically volume overlaoded, does have mitral regurgitation which can lead to congestive changes. medical managemnt. Diuretic like hctz may help add bp control if needed Additional Plan DVT proph: lovenox Subjective Date/time seen: 04/04/21 12:07 Patient with hypertensive urgency, systolics in the 250s -appreciate cardiology evaluation and recommendations, cardiology added lisinopril and Coregand now amlodipine for now -check renin aldosterone levels, -04/02/2021: bilateral renal artery Dopplers: No Doppler evidence of renal artery stenosis ApneaLink test with AHI 8.3/RI 11.4 suggestive of sleep apnea needs sleep study as an outpatient basis. will check cortisol level and also metanephrines 24 hr urine free cortsiol and metanephrines renin aldosteerone pending tsh normal. 04/04/2021 Interval history: Patient with history of HTN had not taken his medications for over a 6 months. Presented to ER with emergently elevated BP of 203/167 patient, in ER patient was given labetalol without significant improvement, was started on nitroglycerine dripp and transferred to ICU, now off drip and currrently on Coreg, lisinopril, and amlopdine, his BP is trending down, he has no c/o CP, dizziness or GARCIA, recent cardiac ECHO showed EF of 45-50% and abnormal diastolic dysfunction, 04/02/2021: bilateral renal artery Dopplers:
--- NOTE | 2021-04-04 12:28 | PM.PNCARD ---
Progress Note: A&P Assessment and Plan (1) Hypertensive emergency: Code(s): I16.1 - Hypertensive emergency Status: Acute Assessment and Plan: His blood pressure is markedly and severely elevated. Amazingly he has not sustained a neurological event to this point. His ejection fraction is diminished and his elevated troponins are likely secondary to hypertensive crisis. Will need to lower his blood pressure gradually over time. Obviously too aggressive blood pressure lowering will result in potential CVA or neurological event. BP still high at times despite 2-3 days of antihypertensive tx. Renin/aldosterone levels pending. Renal artery ultrasound negative for stenosis. He does have sleep apnea based on apnea link. 24 hour urine for metanephrines pending Add chlorthalidone 25 mg daily Home Tuesday/Tuesday? (2) Elevated troponin: Code(s): R77.8 - Other specified abnormalities of plasma proteins Status: Acute Assessment and Plan: Secondary to hypertensive crisis. Unlikely from acute plaque rupture (3) Suspected sleep apnea: Code(s): R29.818 - Other symptoms and signs involving the nervous system Status: Acute Assessment and Plan: Abnormal ApneaLink. Eventual sleep study as an outpatient (4) Severe obesity (BMI 35.0-39.9) with comorbidity: Code(s): E66.01 - Morbid (severe) obesity due to excess calories Status: Acute (5) Cardiomyopathy: Code(s): I42.9 - Cardiomyopathy, unspecified Status: Acute Assessment and Plan: At Least mild reduction of ejection fraction with severe LVH. This is likely secondary to longstanding marked hypertension. Also has nmoderate to severe MR Will need to follow with serial echocardiograms over time. Subjective Date/time seen: 04/04/21 12:28 Interval history: 30-year-old admitted with hypertensive crisis. Echo: EF 45-50%, severe LVH, mod/sev MR. Date of service 04/03/2021: He is feeling better. No chest pain, shortness of breath. Blood pressure obviously still markedly elevated but significantly improved from admission. Date of service 04/04/2021: BP still quite high, 155-180/95-110 or so. Feels fine, up in room w/o SOB, dizziness, CP. Review of Systems Constitutional: Constitutional: Reports no additional constitutional complaints Eyes: Eyes: Reports no additional eye complaints Cardiovascular: Cardiovascular: Denies chest pain, Denies pedal edema, Denies leg edema and Reports lightheadedness Comments: feels a little off when BP is lower Respiratory: Respiratory: Denies dyspnea and Denies dyspnea on exertion Gastrointestinal: Gastrointestinal: Denies abdominal pain Genitourinary: Genitourinary: Denies dysuria Musculoskeletal: Musculoskeletal: Reports no additional musculoskeletal complaints Integumentary/Breasts: Skin/Breast: Denies rash Neurologic: Denies headache(s) Exam Const: General: comfortable and no acute distress HENMT: Mouth: Yes moist mucous membranes Eyes: EOM: EOMs intact bilaterally Neck: Neck: supple Resp: Effort & Inspection: normal respiratory effort Auscultation: clear to auscultation bilaterally Cardio: Rate: regular rate Rhythm: regular rhythm Heart sounds: no gallops and no murmurs GI: GI Palp: Yes Soft to palpation and No Tenderness to palpation present (GI) Neuro: Cognition (Neuro): normal cognition Speech: normal speech Extrem: General: no edema Psych: Mental Status: mental status grossly normal Objective Data Vital Signs Vital Signs: Vital Signs - 24 hr 04/03/21 16:00 04/03/21 20:00 04/03/21 20:18 Temperature 98.2 F 98.1 F Pulse Rate 79 78 88 Respiratory Rate 17 18 Blood Pressure 153/102 H 187/118 H Pulse Oximetry 97 96 04/04/21 00:00 04/04/21 04:00 04/04/21 08:00 Temperature 98.1 F 97.9 F Pulse Rate 65 59 L 84 Respiratory Rate 18 17 22 H Blood Pressure 129/94 H 160/105 H 180/110 H Pulse Oximetry 98 9
[2021-04-04] MEDS: CHLORTHALIDONE 25 MG TABLET PO (13:39)
--- NOTE | 2021-04-04 17:05 | PC.NURSE ---
This patient, Darrius Li, was transferred to [ [facility]] on 04/04/21 at 1706. Personal belongings sent with patient. Report given to [Allyson ]. Appropriate documentation sent with patient.
[2021-04-05] VITALS (7 sets, daily range): BP systolic 151–172; BP diastolic 96–109; PULSE 66–72; RESP 15–22; TEMP 36–36.9; O2SAT 97–100
[2021-04-05] MEDS: carvediloL 6.25 MG TABLET PO ×2 (08:27→20:17)
[2021-04-05] MEDS: amLODIPine BESYLATE 5 MG TABLET 10 MG PO (08:27)
[2021-04-05] MEDS: ENOXAPARIN 40 MG/0.4 ML SYRINGE SUB-Q (08:27)
[2021-04-05] MEDS: lisinopriL 10 MG TABLET PO ×2 (08:28→17:37)
[2021-04-05] MEDS: CHLORTHALIDONE 25 MG TABLET PO (08:28)
--- NOTE | 2021-04-05 13:31 | PM.IMPN ---
Progress Note: A&P Assessment and Plan (1) Hypertensive urgency: Code(s): I16.0 - Hypertensive urgency Status: Acute Assessment and Plan: Patient with hypertensive urgency, systolics in the 250s -appreciate cardiology evaluation and recommendations, cardiology added lisinopril and Coregand now amlodipine for now -check renin aldosterone levels, -04/02/2021: bilateral renal artery Dopplers: No Doppler evidence of renal artery stenosis ApneaLink test with AHI 8.3/RI 11.4 suggestive of sleep apnea needs sleep study as an outpatient basis. will check cortisol level and also metanephrines 24 hr urine free cortsiol and metanephrines renin aldosteerone pending tsh normal. 04/04/2021 Interval history: Patient with history of HTN had not taken his medications for over a 6 months. Presented to ER with emergently elevated BP of 203/167 patient, in ER patient was given labetalol without significant improvement, was started on nitroglycerine dripp and transferred to ICU, now off drip and currrently on Coreg, lisinopril, and amlopdine, his BP is trending down, he has no c/o CP, dizziness or GARCIA, recent cardiac ECHO showed EF of 45-50% and abnormal diastolic dysfunction, 04/02/2021: bilateral renal artery Dopplers: No Doppler evidence of renal artery stenosis, patient with elevated tropes most likely secondary to stress ischemia due to emergently elevated blood pressure, patient is seen by poly area supervisor and further recommendation to follow. 04/05/2021 Interval history: Patient with history of HTN had not taken his medications for over a 6 months. Presented to ER with emergently elevated BP of 203/167 patient, in ER patient was given labetalol without significant improvement, was started on nitroglycerine dripp and transferred to ICU, now off drip and currrently on Coreg, lisinopril, and amlopdine, his BP is trending down, he has no c/o CP, dizziness or GARCIA, recent cardiac ECHO showed EF of 45-50% and abnormal diastolic dysfunction, bilateral renal artery Dopplers: No Doppler evidence of renal artery stenosis, patient with elevated tropes most likely secondary to stress ischemia due to emergently elevated blood pressure, patient is seen by poly area supervisor and further recommendation to follow. Today patient has no complaint of chest pain his blood pressure 161/96 on current regimen will continue to monitor will discharge the patient home tomorrow (2) Elevated troponin: Code(s): R77.8 - Other specified abnormalities of plasma proteins Status: Acute Assessment and Plan: Elevated troponin, likely related to hypertensive urgency, flat trajectory (3) Cardiomyopathy: Code(s): I42.9 - Cardiomyopathy, unspecified Status: Acute Assessment and Plan: 04/02/2021 echocardiogram showed mildly reduced LV systolic function with EF of 45-50%, severely increased left ventricular wall thickness, LV diastolic function is abnormal, moderate to severe mitral valve regurg -once blood pressures are stable will repeat echocardiogram (4) Mitral regurgitation: Code(s): I34.0 - Nonrheumatic mitral (valve) insufficiency Status: Acute Assessment and Plan: moderate to sevre mitral valve regurg. repeat planned afer bp improved meddical managmenet for now (5) Abnormal CT of the chest: Code(s): R93.89 - Abnormal findings on diagnostic imaging of other specified body structures Status: Acute Assessment and Plan: due to covid vs pulm congestion. recent covid infection. cta neggativ efor PE not clinically volume overlaoded, does have mitral regurgitation which can lead to congestive changes. medical managemnt. Diuretic like hctz may help add bp control if needed Additional Plan DVT proph: lovenox Subjective Date/time seen: 04/05/21 13:31 04/05/2021 Interval history: Patient with history of HTN had not taken his medications for over a 6 months. Presented to ER with emergently elevated BP of 203/167 zulema
--- NOTE | 2021-04-05 18:13 | PM.PNCARD ---
Progress Note: A&P Assessment and Plan (1) Hypertensive emergency: Code(s): I16.1 - Hypertensive emergency Status: Acute Assessment and Plan: His blood pressure is markedly and severely elevated. Amazingly he has not sustained a neurological event to this point. His ejection fraction is diminished and his elevated troponins are likely secondary to hypertensive crisis. Will need to lower his blood pressure gradually over time. Obviously too aggressive blood pressure lowering will result in potential CVA or neurological event. BP gradually improving, acceptable range at this time. Renin/aldosterone levels pending. Renal artery ultrasound negative for stenosis. He does have sleep apnea based on apnea link. 24 hour urine for metanephrines pending Added chlorthalidone 25 mg daily Home Tuesday? (2) Elevated troponin: Code(s): R77.8 - Other specified abnormalities of plasma proteins Status: Acute Assessment and Plan: Secondary to hypertensive crisis. Unlikely from acute plaque rupture (3) Suspected sleep apnea: Code(s): R29.818 - Other symptoms and signs involving the nervous system Status: Acute Assessment and Plan: Abnormal ApneaLink. Eventual sleep study as an outpatient (4) Severe obesity (BMI 35.0-39.9) with comorbidity: Code(s): E66.01 - Morbid (severe) obesity due to excess calories Status: Acute (5) Cardiomyopathy: Code(s): I42.9 - Cardiomyopathy, unspecified Status: Acute Assessment and Plan: At Least mild reduction of ejection fraction with severe LVH. This is likely secondary to longstanding marked hypertension. Also has nmoderate to severe MR Will need to follow with serial echocardiograms over time. Subjective Date/time seen: 04/05/21 18:14 Interval history: 30-year-old admitted with hypertensive crisis. Echo: EF 45-50%, severe LVH, mod/sev MR. Date of service 04/03/2021: He is feeling better. No chest pain, shortness of breath. Blood pressure obviously still markedly elevated but significantly improved from admission. Date of service 04/04/2021: BP still quite high, 155-180/95-110 or so. Feels fine, up in room w/o SOB, dizziness, CP. Date of service 04/05/2021: Feeling quite well, up and about in his room with no problems. BP is today are running 151-161/96-104. Pulse in 60s. Review of Systems Constitutional: Constitutional: Reports no additional constitutional complaints Eyes: Eyes: Denies blurry vision ENT: Reports system reviewed and no additional complaints, except as documented Cardiovascular: Cardiovascular: Denies chest pain, Denies pedal edema and Denies lightheadedness Respiratory: Respiratory: Denies dyspnea and Denies dyspnea on exertion Gastrointestinal: Gastrointestinal: Denies abdominal pain Genitourinary: Genitourinary: Denies dysuria Musculoskeletal: Musculoskeletal: Reports no additional musculoskeletal complaints Integumentary/Breasts: Skin/Breast: Denies rash Neurologic: Reports system reviewed and no additional complaints, except as documented Psychiatric: Psychiatric: Reports no additional psychiatric complaints Exam Narrative: Overweight male playing computer games, pleasant in no distress Const: General: comfortable and no acute distress HENMT: Mouth: Yes moist mucous membranes Eyes: EOM: EOMs intact bilaterally Neck: Neck: supple Resp: Effort & Inspection: normal respiratory effort Auscultation: clear to auscultation bilaterally Cardio: Rate: regular rate Rhythm: regular rhythm Heart sounds: no gallops and no murmurs Neuro: Cognition (Neuro): normal cognition Speech: normal speech Extrem: General: no edema Psych: Mental Status: mental status grossly normal Objective Data Vital Signs Vital Signs: Vital Signs - 24 hr 04/04/21 20:00 04/05/21 00:00 04/05/21 04:00 Temperature 98.3 F 98.4 F 96.8 F L Pulse Rate 71 67 71 Respirato
[2021-04-06] VITALS: BP 128/67; PULSE 60; RESP 20; TEMP 36; O2SAT 98
[2021-04-06 04:00] VITALS: BP 149/84; PULSE 54; PULSE 58; RESP 20; TEMP 36; O2SAT 100
[2021-04-06 08:00] VITALS: BP 169/103; PULSE 66; RESP 19; TEMP 35.8; O2SAT 98
[2021-04-06] MEDS: amLODIPine BESYLATE 5 MG TABLET 10 MG PO (08:24)
[2021-04-06] MEDS: carvediloL 6.25 MG TABLET PO (08:24)
[2021-04-06] MEDS: lisinopriL 10 MG TABLET PO (08:25)
[2021-04-06] MEDS: ENOXAPARIN 40 MG/0.4 ML SYRINGE SUB-Q (08:25)
[2021-04-06] MEDS: CHLORTHALIDONE 25 MG TABLET PO (08:25)
[2021-04-06 09:37] LABS: Hematocrit 46.6 % (42.0-52.0); Hemoglobin 15.5 g/dL (14.0-18.0); Mean Corpuscular HGB Conc 33.3 g/dl (32-36); Mean Corpuscular Hemoglobin 27.8 pg (26-34); Mean Corpuscular Volume 83.5 fl (80-100); Mean Platelet Volume 12.3 fl (7.4-10.4); Platelet Count Result 276 k/mm3 (150-375); Red Blood Count 5.58 M/mm3 (4.6-6.20); Red Cell Distribution Width 13.6 % (11.5-14.5); White Blood Count 5.9 K/mm3 (4.5-10.0)
[2021-04-06 09:50] LABS: Anion Gap 8 mmol/L (8-16); Blood Urea Nitrogen 21 mg/dL (9-20); Calcium 9.7 mg/dL (8.4-10.2); Carbon Dioxide 25 mmol/L (22-30); Chloride 104 mmol/L (98-107); Estimated CRCL calculation 93 ml/min; Estimated Glomerular Filt Rate 59; Glucose 96 mg/dL (65-110); Potassium 4.4 mmol/L (3.4-5.0); Sodium 137 mmol/L (137-145)
--- NOTE | 2021-04-06 10:50 | PM.PNCARD ---
Progress Note: A&P Assessment and Plan (1) Hypertensive emergency: Code(s): I16.1 - Hypertensive emergency Status: Acute Assessment and Plan: His blood pressure is markedly and severely elevated. Amazingly he has not sustained a neurological event to this point. His ejection fraction is diminished and his elevated troponins are likely secondary to hypertensive crisis. Will need to lower his blood pressure gradually over time. Obviously too aggressive blood pressure lowering will result in potential CVA or neurological event. BP gradually improving, acceptable range at this time. Renin/aldosterone levels pending. Renal artery ultrasound negative for stenosis. He does have sleep apnea based on apnea link - will need OP sleep study 24 hour urine for metanephrines pending Added chlorthalidone 25 mg daily OK for discharge home today. (2) Elevated troponin: Code(s): R77.8 - Other specified abnormalities of plasma proteins Status: Acute Assessment and Plan: Secondary to hypertensive crisis. Unlikely from acute plaque rupture (3) Suspected sleep apnea: Code(s): R29.818 - Other symptoms and signs involving the nervous system Status: Acute Assessment and Plan: Abnormal ApneaLink. Eventual sleep study as an outpatient (4) Severe obesity (BMI 35.0-39.9) with comorbidity: Code(s): E66.01 - Morbid (severe) obesity due to excess calories Status: Acute (5) Cardiomyopathy: Code(s): I42.9 - Cardiomyopathy, unspecified Status: Acute Assessment and Plan: At Least mild reduction of ejection fraction with severe LVH. This is likely secondary to longstanding marked hypertension. Also has moderate to severe MR Will need to follow with serial echocardiograms over time. Subjective Date/time seen: 04/06/21 10:50 Interval history: 30-year-old admitted with hypertensive crisis. Echo: EF 45-50%, severe LVH, mod/sev MR. Date of service 04/03/2021: He is feeling better. No chest pain, shortness of breath. Blood pressure obviously still markedly elevated but significantly improved from admission. Date of service 04/04/2021: BP still quite high, 155-180/95-110 or so. Feels fine, up in room w/o SOB, dizziness, CP. Date of service 04/05/2021: Feeling quite well, up and about in his room with no problems. BP is today are running 151-161/96-104. Pulse in 60s. Date of service 04/06/2021: Continues to feel well. Denies any headache, dizziness, shortness of breath, chest pain. Review of Systems Review of Systems: All systems reviewed & are unremarkable except as noted in HPI and below Constitutional: Constitutional: Reports no additional constitutional complaints, Denies excessive sweating, Denies headache(s) and Denies weakness Eyes: Eyes: Reports no additional eye complaints and Denies blurry vision ENT: Reports system reviewed and no additional complaints, except as documented, Denies Normal hearing present, Denies headache(s) and Denies neck pain Cardiovascular: Cardiovascular: Denies chest pain, Denies pedal edema, Denies leg edema, Denies lightheadedness, Denies dyspnea and Denies dyspnea on exertion Respiratory: Respiratory: Reports hemoptysis, Denies dyspnea and Denies dyspnea on exertion Gastrointestinal: Gastrointestinal: Denies abdominal pain Genitourinary: Genitourinary: Denies dysuria Musculoskeletal: Musculoskeletal: Reports no additional musculoskeletal complaints and Denies neck pain Integumentary/Breasts: Skin/Breast: Denies dry skin and Denies rash Neurologic: Reports system reviewed and no additional complaints, except as documented, Denies Normal hearing present, Denies headache(s) and Denies weakness Psychiatric: Psychiatric: Reports no additional psychiatric complaints and Denies anxiety Endocrine: Endocrine: Denies excessive sweating Hematologic/Lymphatic: Hematologic/Lymphatic: Denies easy bleeding Allergi
--- NOTE | 2021-04-06 11:55 | PM.DS ---
DS: Admitting Diagnosis Discharge Date 04/06/2021 Admitting Diagnosis High blood pressure and chest pain. DS: Discharge Diagnosis Discharge Diagnosis (1) Hypertensive urgency: Code(s): I16.0 - Hypertensive urgency Status: Acute Assessment and Plan: Patient with hypertensive urgency, systolics in the 250s -appreciate cardiology evaluation and recommendations, cardiology added lisinopril and Coregand now amlodipine for now -check renin aldosterone levels, -04/02/2021: bilateral renal artery Dopplers: No Doppler evidence of renal artery stenosis ApneaLink test with AHI 8.3/RI 11.4 suggestive of sleep apnea needs sleep study as an outpatient basis. will check cortisol level and also metanephrines 24 hr urine free cortsiol and metanephrines renin aldosteerone pending tsh normal. 04/04/2021 Interval history: Patient with history of HTN had not taken his medications for over a 6 months. Presented to ER with emergently elevated BP of 203/167 patient, in ER patient was given labetalol without significant improvement, was started on nitroglycerine dripp and transferred to ICU, now off drip and currrently on Coreg, lisinopril, and amlopdine, his BP is trending down, he has no c/o CP, dizziness or GARCIA, recent cardiac ECHO showed EF of 45-50% and abnormal diastolic dysfunction, 04/02/2021: bilateral renal artery Dopplers: No Doppler evidence of renal artery stenosis, patient with elevated tropes most likely secondary to stress ischemia due to emergently elevated blood pressure, patient is seen by farm equipment technician and further recommendation to follow. 04/05/2021 Interval history: Patient with history of HTN had not taken his medications for over a 6 months. Presented to ER with emergently elevated BP of 203/167 patient, in ER patient was given labetalol without significant improvement, was started on nitroglycerine dripp and transferred to ICU, now off drip and currrently on Coreg, lisinopril, and amlopdine, his BP is trending down, he has no c/o CP, dizziness or GARCIA, recent cardiac ECHO showed EF of 45-50% and abnormal diastolic dysfunction, bilateral renal artery Dopplers: No Doppler evidence of renal artery stenosis, patient with elevated tropes most likely secondary to stress ischemia due to emergently elevated blood pressure, patient is seen by farm equipment technician and further recommendation to follow. Today patient has no complaint of chest pain his blood pressure 161/96 on current regimen will continue to monitor will discharge the patient home tomorrow (2) Elevated troponin: Code(s): R77.8 - Other specified abnormalities of plasma proteins Status: Acute Assessment and Plan: Elevated troponin, likely related to hypertensive urgency, flat trajectory (3) Cardiomyopathy: Code(s): I42.9 - Cardiomyopathy, unspecified Status: Acute Assessment and Plan: 04/02/2021 echocardiogram showed mildly reduced LV systolic function with EF of 45-50%, severely increased left ventricular wall thickness, LV diastolic function is abnormal, moderate to severe mitral valve regurg -once blood pressures are stable will repeat echocardiogram (4) Mitral regurgitation: Code(s): I34.0 - Nonrheumatic mitral (valve) insufficiency Status: Acute Assessment and Plan: moderate to sevre mitral valve regurg. repeat planned afer bp improved meddical managmenet for now (5) Abnormal CT of the chest: Code(s): R93.89 - Abnormal findings on diagnostic imaging of other specified body structures Status: Acute Assessment and Plan: due to covid vs pulm congestion. recent covid infection. cta neggativ efor PE not clinically volume overlaoded, does have mitral regurgitation which can lead to congestive changes. medical managemnt. Diuretic like hctz may help add bp control if needed DS: Summary Hospital Course Reason for hospitalization: Chief Complaint: High blood pressure and chest pain. Narrative: This is
[2021-04-07 16:48] LABS: Metanephrine, Free 37 pg/mL (<=57); Normetanephrine, Free 132 pg/mL (<=148); Total, Free (MN + NMN) 169 pg/mL (<=205)
[2021-04-09 04:17] LABS: Renin 12.12 ng/mL/h (0.25-5.82)
== END 2021-04-06 12:30 | disposition home or self-care (01) | DRG 199 ==
LOC: ANHED 16:03 → ANHICU 17:16 → ANHCPC 04-02 18:07 → ANH3MEDSUR 04-04 17:08
PROVIDERS: Emergency Medicine; Internal Medicine; Internal Medicine Cardiovascular Disease; Physician Assistant; Admitting Provider Family Medicine; Emergency Provider Emergency Medicine; PCP Family Medicine Sports Medicine; Visit Provider Family Medicine
DX: I16.1 Hypertensive emergency (principal); G47.30 Sleep apnea, unspecified; E66.01 Morbid (severe) obesity due to excess calories; Z68.36 Body mass index [BMI] 36.0-36.9, adult; I42.9 Cardiomyopathy, unspecified; I34.0 Nonrheumatic mitral (valve) insufficiency
CPT/HCPCS: 36415; 71046; 71275; 80048; 80053; 80061; 80307; 82088; 82530; 82533; 82565; 82948; 83690; 83735; 83835; 84244; 84443; 84460; 84484; 85025; 85027; 85380; 85610; 85730; 93005; 93976; 94762; 96374; 96376; 99285; A9270; C8929; J0360; J1100; J1650; J2405; J7060; Q9967